=== PATIENT | male | born 1980 | race Caucasian/White ===

== ENCOUNTER 2020-04-02 07:49 | Day surgery (SDC) | payer OTHER ==
[2020-03-26 14:30] LABS: BASOPHILS # (AUTO) 0.1 X10'3 (0-0.2); EOSINOPHILS # (AUTO) 0.2 X10'3 (0-0.9); EOSINOPHILS % (AUTO) 2.1 % (0-6); LYMPHOCYTES % (AUTO) 32.4 % (21-51); MEAN CORPUSCULAR HGB CONC 34.9 g/dL (33.0-36.5); MEAN CORPUSCULAR VOLUME 85.9 FL (78-98); MEAN PLATELET VOLUME 7.4 FL (7.4-10.4); MONOCYTES # (AUTO) 0.6 X10'3 (0-0.9); MONOCYTES % (AUTO) 6.1 % (2-12); NEUTROPHILS # (AUTO) 5.4 X10'3 (1.8-7.7); NEUTROPHILS % (AUTO) 58.4 % (42-75); PRE OP HEMATOCRIT 42.7 % (42.0-52.0); PRE OP HEMOGLOBIN 14.9 g/dL (14.0-17.9); PRE OP PLATELET COUNT 353 X10'3 (140-440); RED BLOOD COUNT 4.97 X10'6 (4.70-6.10); RED CELL DISTRIBUTION WIDTH 12.8 % (11.5-14.5)
[2020-03-26 14:46] LABS: ALBUMIN 4.1 G/DL (3.4-5.0); ALBUMIN/GLOBULIN RATIO 1.1 (1.1-1.5); ALKALINE PHOSPHATASE 79 IU/L (46-116); BLOOD UREA NITROGEN 16 MG/DL (7-18); CALCIUM 8.7 MG/DL (8.5-10.1); CHLORIDE 103 MMOL/L (99-107); PRE OP ANION GAP 8 (8-16); PRE OP AST 38 U/L (10-37); PRE OP BILIRUB, TOTAL 0.7 MG/DL (0.0-1.0); PRE OP GLUCOSE 164 MG/DL (70-104); PRE OP POTASSIUM 3.7 MMOL/L (3.4-5.1); PRE OP SODIUM 139 MMOL/L (135-145); TOTAL PROTEIN 7.8 G/DL (6.4-8.2); eGFR > 90 ML/MIN
[2020-03-26 14:52] LABS: PRE OP ALT 88 U/L (30-65)
[~2020-04-02] VITALS: Ht 175.3 cm; Wt 93.4 kg
[2020-04-02] VITALS (8 sets, daily range): BP systolic 131–143; BP diastolic 79–93
[~2020-04-02 07:49] MED LIST: ACET-1008 PO; BUPIVACAINE liposomal/PF 13.3 MG/ML vial IM ONE; BUPIVAcaine/PF 2.5 mg/ml (0.25%) 30ml vial ONE; BUPIVAcaine/PF 2.5mg/ml (0.25%) 10ml vial ONE; GABA-530 PO; IBUP-1984 PO; LIDOcaine 1% 30ml preserv. free vial ONE; MULT-1085 PO; TRAM50TA2 PO; ceFAZolin 2gm in dextrose, iso 50 ML IV ONE; famotidine 20mg tablet PO ONE; ringers solution, lacted 1,000 ML IV SCH
[2020-04-02] MEDS ORDERED: morphine 4 MG/ML inj SYRINge IM ONE (08:55)
[2020-04-02] MEDS ORDERED: BUPIVAcaine/PF 2.5 mg/ml (0.25%) 30ml vial IJ ONE (08:56)
[2020-04-02] MEDS ORDERED: LIDOcaine 1% 30ml preserv. free vial IJ ONE (08:57)
[2020-04-02] MEDS ORDERED: BUPIVAcaine/PF 2.5mg/ml (0.25%) 10ml vial IJ ONE (08:58)
[2020-04-02] MEDS ORDERED: BUPIVACAINE liposomal/PF 13.3 MG/ML vial IM ONE (08:58)
[2020-04-02] MEDS ORDERED: morphine 4 MG/ML inj SYRINge IV ONE (09:35)
[2020-04-02] MEDS ORDERED: morphine 4 MG/ML inj SYRINge ONE (10:10)
[2020-04-02] MEDS ORDERED: sevoflurane 250ml liquid IH ONE (10:10)
[2020-04-02] MEDS ORDERED: fentaNYL /PF 50mcg/ml 5ml ampule ONE (10:22)
[2020-04-02] MEDS ORDERED: midazolam 2 mg/2 ml injection ONE (10:22)
[2020-04-02] MEDS ORDERED: LIDOcaine 2% (20mg/ml) 5ml vial ONE (10:35)
[2020-04-02] MEDS ORDERED: propofol inj 20 ML IV ONE (10:35)
[2020-04-02] MEDS ORDERED: rocuronium 10mg/ml inj IV ONE (10:35)
[2020-04-02] MEDS ORDERED: ondansetron/PF 4mg/2ml inj ONE (10:41)
[2020-04-02] MEDS ORDERED: dexamethasone sod phosphate 4mg/ml inj. ONE (10:41)
[2020-04-02] MEDS ORDERED: ondansetron/PF 4mg/2ml inj IV PRN (11:00)
[2020-04-02] MEDS ORDERED: hydrALAZINE 20mg/ml inj. IV PRN (11:00)
[2020-04-02] MEDS ORDERED: acetaminophen 1,000mg/100ml IV 100 ML IV PRN (11:00)
[2020-04-02] MEDS ORDERED: morphine 4 MG/ML inj SYRINge IV PRN (11:00)
[2020-04-02] MEDS ORDERED: proCHLORperazine 10 MG/2 ml inj IV PRN (11:00)
[2020-04-02] MEDS ORDERED: meperidine/PF 25mg/ml syringe IV PRN (11:00)
[2020-04-02] MEDS ORDERED: ketorolac trometh. 30mg/ml inj. IV ONE (11:00)
[2020-04-02] MEDS ORDERED: HYDROmorphone/PF 0.2 MG/ML SYRINGE IV PRN ×2 (11:00)
[2020-04-02] MEDS ORDERED: morphine 2 MG/ML inj. syringe IV PRN (11:00)
[2020-04-02] MEDS ORDERED: labetalol 20mg/4ml (5mg/ml) syringe IV PRN (11:00)
[2020-04-02] MEDS ORDERED: ringers solution, lacted 1,000 ML IV SCH (11:00)
[2020-04-02] MEDS ORDERED: sugammadex 200mg/2ml injection IV ONE ×2 (11:37→11:49)
--- NOTE | 2020-04-02 12:00 | NUR ---
Received from OR via BED , accompanied by Anesthesiologist DR QUESADA and report given by Anesthesiolgist. PATIENT WAKING UP, DENIES PAIN, V/S WNL, NEUROVASCULAR CHECKS INTACT, 20G PIV LUE, SCD ON, BANDAIDS TO LAP SIGHTS OF ABDOMEN CDI.
[2020-04-02] MEDS ORDERED: oxyCODONE/APAP 5-325mg tablet PO PRN (12:15)
[2020-04-02] MEDS ORDERED: oxyCODONE/APAP 10/325mg tablet PO PRN (12:15)
--- NOTE | 2020-04-02 13:00 | NUR ---
PATIENT A&OX4, DENIES PAIN, V/S WNL, NEUROVASCULAR CHECKS INTACT, 20G PIV LUE D/C, SCD OFF, BANDAIDS TO LAP SIGHTS OF ABDOMEN CDI.. I HAVE REVIEWED D/C INSTRUCTIONS WITH PATIENT AND FAMILY HAVE VERBALIZED UNDERSTANDING.PATIENT WAS D/C HOME WITH ALL BELONGINGS AND FAMILY GAVE TRANSPORT HOME.
== END 2020-04-02 13:00 | disposition home or self-care (01) ==
LOC: PAS 07:49
PROVIDERS: ATTEND Surgery
DX: K42.0 Umbilical hernia with obstruction, without gangrene (principal); Z20.822 Contact with and (suspected) exposure to COVID-19; F41.9 Anxiety disorder, unspecified; F32.9 Major depressive disorder, single episode, unspecified; G89.29 Other chronic pain; Z79.899 Other long term (current) drug therapy; Z72.89 Other problems related to lifestyle; Z87.891 Personal history of nicotine dependence; Z98.890 Other specified postprocedural states
CPT/HCPCS: 36415; 49653; 64488; 80053; 82948; 85025; 87635; 93005; C1781; C9290; C9399; J0131; J1100; J1885; J2001; J2250; J2270; J2405; J2704; J3010; J3490; S2900; A4215; A4618; J7120

== ENCOUNTER 2020-04-05 12:34 | Emergency (ER) | payer OTHER ==
[~2020-04-05] VITALS: Ht 175.3 cm; Wt 90.9 kg
[~2020-04-05 12:34] MED LIST changes: -BUPIVACAINE liposomal/PF 13.3 MG/ML vial IM ONE; -BUPIVAcaine/PF 2.5 mg/ml (0.25%) 30ml vial ONE; -BUPIVAcaine/PF 2.5mg/ml (0.25%) 10ml vial ONE; -LIDOcaine 1% 30ml preserv. free vial ONE; -ceFAZolin 2gm in dextrose, iso 50 ML IV ONE; -famotidine 20mg tablet PO ONE; -ringers solution, lacted 1,000 ML IV SCH
[2020-04-05 13:28] LABS: BASOPHILS # (AUTO) 0.1 X10'3 (0-0.2); BASOPHILS % (AUTO) 0.6 % (0-1); EOSINOPHILS # (AUTO) 0.2 X10'3 (0-0.9); EOSINOPHILS % (AUTO) 1.4 % (0-6); HEMATOCRIT 44.9 % (42.0-52.0); HEMOGLOBIN 15.4 g/dl (14.0-17.9); LYMPHOCYTES # (AUTO) 3.1 X10'3 (1.1-4.8); LYMPHOCYTES % (AUTO) 26.4 % (21-51); MEAN CORPUSCULAR HEMOGLOBIN 29.3 PG (27.0-31.0); MEAN CORPUSCULAR HGB CONC 34.2 g/dL (33.0-36.5); MEAN CORPUSCULAR VOLUME 85.7 FL (78-98); MEAN PLATELET VOLUME 7.6 FL (7.4-10.4); MONOCYTES # (AUTO) 0.6 X10'3 (0-0.9); MONOCYTES % (AUTO) 4.9 % (2-12); NEUTROPHILS # (AUTO) 7.9 X10'3 (1.8-7.7); NEUTROPHILS % (AUTO) 66.7 % (42-75); PLATELET COUNT 394 X10'3 (140-440); RED BLOOD COUNT 5.24 X10'6 (4.70-6.10); WHITE BLOOD COUNT 11.8 X10'3 (4.5-11.0)
[2020-04-05 13:29] LABS: CLARITY,URINE CLEAR (Clear); COLOR,URINE STRAW (Yellow); GLUCOSE, URINE NEGATIVE (Neg); KETONES,URINE NEGATIVE (Neg); LEUKOCYTE ESTERASE ,URINE NEGATIVE (Neg); NITRITES, URINE NEGATIVE (Neg); OCCULT BLOOD,URINE NEGATIVE (Neg); PROTEIN,URINE NEGATIVE (Neg); UROBILINOGEN,URINE 0.2 E.U/dL (0.2-1.0)
[2020-04-05 13:32] LABS: UA COLLECTION TYPE VOIDED
[2020-04-05 13:48] LABS: HEMOGLOBIN A1C 5.8 % (4.5-6.2)
[2020-04-05 13:54] LABS: ALANINE AMINOTRANSFERASE 65 U/L (12-78); ALBUMIN 4.2 G/DL (3.4-5.0); ALKALINE PHOSPHATASE 80 IU/L (46-116); ANION GAP 10 (8-16); ASPARTATE AMINO TRANSFERASE 25 U/L (10-37); BILIRUBIN,TOTAL 0.7 MG/DL (0.1-1.0); BLOOD UREA NITROGEN 10 MG/DL (7-18); C-REACTIVE PROTEIN 1.02 MG/DL (0.0-0.5); CHLORIDE 102 MMOL/L (99-107); CREATININE 0.83 MG/DL (0.60-1.10); GLUCOSE 219 MG/DL (70-104); LIPASE 106 U/L (73-393); POTASSIUM 3.7 MMOL/L (3.5-5.1); SODIUM 138 MMOL/L (135-145); TOTAL CARBON DIOXIDE 26.3 MMOL/L (24-32); TOTAL PROTEIN 8.3 G/DL (6.4-8.2); eGFR > 90 ML/MIN
[2020-04-05 15:08] VITALS: BP 120/77
== END 2020-04-05 15:12 | disposition home or self-care (01) ==
LOC: ER 12:35
DX: H11.33 Conjunctival hemorrhage, bilateral (principal); R73.9 Hyperglycemia, unspecified; Z79.899 Other long term (current) drug therapy
CPT/HCPCS: 36415; 80053; 81003; 82948; 83036; 83605; 83690; 85025; 85651; 86140; 99283